=== PATIENT | female | born 1975 | race Hispanic/Latino ===

== ENCOUNTER 2018-04-24 13:47 | Emergency (ER) | payer MEDICARE, MEDICAID ==
[2018-04-24 13:48] VITALS: BMI 39.1
[2018-04-24] MEDS ORDERED: Sodium Bicarbonate (8.4%) 50 Meq Syringe IVP ONE (13:52)
[2018-04-24 14:59] VITALS: BP 0/0; PULSE 0; RESP 0; TEMP 97.8; O2SAT 0
--- NOTE | 2018-04-24 15:28 | ED PDOC ---
Arrival/HPI <Gera Marques - Last Filed: 04/24/18 15:08> - General Historian: Family, EMS <Js Ku - Last Filed: 04/24/18 16:57> - General Chief Complaint: Cardiac Arrest Time Seen by Provider: 04/24/18 14:27 - History of Present Illness Narrative History of Present Illness (Text): Patient is a 43 year old female who is brought in via EMS in cardiac arrest. Patient was found by unresponsive today and began CPR. EMS were called. EMS intubated patient, placed IO, gave 5 epi, and one bicarb. Patient was found to be pulseless and asystole on monitor. 04/24/18 15:46 04/24/18 15:57 (Gera Marques) Past Medical History - Provider Review Nursing Documentation Reviewed: Yes - Infectious Disease Hx of Infectious Diseases: None - Psychiatric Hx Substance Use: Yes <Gera Marques - Last Filed: 04/24/18 15:08> Family/Social History - Physician Review Nursing Documentation Reviewed: Yes Family/Social History: Unknown Family HX Smoking Status: Unknown If Ever Smoked Hx Alcohol Use: No Hx Substance Use: Yes <Gera Marques - Last Filed: 04/24/18 15:08> Allergies/Home Meds <Gera Marques - Last Filed: 04/24/18 15:08> <Js Ku - Last Filed: 04/24/18 16:57> Allergies/Adverse Reactions: Allergies shellfish derived Allergy (Verified 04/24/18 14:00) ANAPHYLAXIS Home Medications: Home Meds Medication Instructions Recorded Confirmed Unobtainable 04/24/18 04/24/18 Review of Systems - Review of Systems Systems not reviewed;Unavailable: Unstable Vital Signs <Gera Marques - Last Filed: 04/24/18 15:08> Physical Exam Vital Signs Reviewed: Yes Temperature: Febrile Blood Pressure: Hypotensive Pulse: Pulseless Appearance: Positive for: Ill-Appearing Finger Stick Blood Glucose: 138 - Systems Exam Head: No: Atraumatic Pupils: Present: Other (fixed dilated bilateraly) Conjunctiva: No: Icteric Mouth: Present: Dry Pharnyx: Present: Other (intubated) Nose (External): Present: Atraumatic Respiratory/Chest: Present: Other (no lung sounds) Cardiovascular: Present: Other (no heart sounds auscultated ) Neurological: Present: Other (GCS 3T) Skin: Present: Cold Psychiatric: No: Alert, Oriented x 3, Normal Insight, Normal Concentration <Marques,Gera - Last Filed: 04/24/18 15:08> Vital Signs Temp Pulse Resp BP Pulse Ox 04/24/18 13:47 97.8 F 0 L 0 L 0/0 L 0 L Medical Decision Making <Gera Marques - Last Filed: 04/24/18 15:08> <Js Ku - Last Filed: 04/24/18 16:57> ED Course and Treatment: Assessment and Plan: Patient is a 43 year old female who is brought in via EMS in cardiac arrest Cardiac Arrest Zana machine used to for chest compressions. 4 amps of bicarb was given at first. Levophed started. Epi given every 3-5 minutes with pulse and rhythm checks every 2 minutes. 4 rounds of CPR performed. Patient family informed of patient's condition. Patient remained asystole on the monitor. No heart sounds or lung sounds auscultated. Pupils were fixed and dilated. No response to verbal or painful stimuli noted. Patient was pronounced at 1409. 04/24/18 15:50 (Gera Marques) 04/24/18 In agreement with resident note, which includes further HPI details. Patient was seen and evaluated with resident, came up with plan and treatment together. (Js Ku) <Gera Marques - Last Filed: 04/24/18 15:08> - PA / FUNERAL ARRANGEMENT DIRECTOR / Resident Statement MD/ has reviewed & agrees with the documentation as recorded. MD/DO has examined the patient and agrees with the treatment plan. - Scribe Statement The provider has reviewed the documentation as recorded by the Scribe <Js Ku - Last Filed: 04/24/18 16:57> - Scribe Statement Prema Layton Provider Scribe Attestation: All medical record entries made by the Scribe were at my direction and personally dictated by me. I have reviewed the chart and agree that the record accurately reflects my personal performance of the history, physical exam, medical decision making, and the department course for this patient. I have also personally directed, reviewed, and agree with the discharge instructions and disposition. (Js Ku) Disposition/Present on Arrival - Present on Arrival Any Indicators Present on Arrival: No History of DVT/PE: No History of Uncontrolled Diabetes: No Urinary Catheter: No History of Decub. Ulcer: No History Surgical Site Infection Following: None - Disposition Have Diagnosis and Disposition been Completed?: Yes Disposition Time: 14:09 <Gera Marques - Last Filed: 04/24/18 15:08> <Js Ku - Last Filed: 04/24/18 16:57> - Disposition Diagnosis: Cardiac arrest Disposition: WITH WITHOUT AUTOPSY Patient Problems: Current Active Problems Problem Status Onset Cardiac arrest Acute Condition: Forms: [employer] ([place])
== END 2018-04-24 16:45 ==
LOC: ED 13:47
DX: I46.9 Cardiac arrest, cause unspecified (principal)